=== PATIENT | female | born 1990 | race Caucasian/White ===

== ENCOUNTER 2021-06-04 10:05 | Emergency (ER) | payer OTHER, MEDICAID ==
[~2021-06-04] VITALS: Ht 180.3 cm; Wt 88.5 kg
[2021-06-04] MEDS ORDERED: IBUPROFEN 800800 M1 PO (10:17)
[2021-06-04] MEDS ORDERED: NORCO7.5 PO (10:17)
[2021-06-04] MEDS ORDERED: PREDNISONE 10 M10 MG PO (10:17)
[2021-06-04] MEDS ORDERED: PRELONE15 MG/5 ML PO (10:19)
[2021-06-04] MEDS ORDERED: [UNRECOGNIZED DRUG - CODE] PO (10:21)
[2021-06-04 10:50] LABS: HEMOGLOBIN 11.5 gm/dL (12.0-15.0); MCH 32.5 pg (26.0-34.0); MCHC 33.8 g/dL (28.0-37.0); MCV 96.1 fL (80.0-100.0); MPV 8.1 fl. (7.2-11.1); NUCLEATED RBCS 0 /100WBC; PLATELET COUNT* 320 thou/uL (150-400); RBC 3.54 mil/uL (4.20-5.00); RDW-CV 12.7 % (10.5-14.5); WBC 20.7 thou/uL (4.0-11.0)
[2021-06-04 10:58] LABS: CALCIUM 8.9 mg/dL (8.5-10.1); POTASSIUM 3.5 mmol/L (3.5-5.1)
[2021-06-04 11:02] LABS: ALBUMIN 3.7 g/dL (3.4-5.0); TOTAL BILIRUBIN 0.2 mg/dL (<0.1-1.0)
[2021-06-04 11:36] LABS: ABSOLUTE LYMPHOCYTES 0.2 thou/uL (0.8-5.3); ABSOLUTE MONOCYTES 0.4 thou/uL (0.0-1.2); ABSOLUTE NEUTROPHILS 20.1 thou/uL (1.6-8.1); PLATELET ESTIMATE ADEQUATE
[2021-06-04 17:14] VITALS: BP 111/73
== END 2021-06-04 17:16 | disposition still patient (30) ==
LOC: M.ERS 10:05
PROVIDERS: Physician Assistant
DX: K12.2 Cellulitis and abscess of mouth (principal); Z20.822 Contact with and (suspected) exposure to COVID-19; Z79.899 Other long term (current) drug therapy

== ENCOUNTER 2021-07-21 18:30 | Emergency (ER) | payer OTHER, MEDICAID ==
[~2021-07-21] VITALS: Ht 180.3 cm; Wt 88.5 kg
[~2021-07-21 18:30] MED LIST: IBUPROFEN 800800 M1 PO; NORCO7.5 PO; PREDNISONE 10 M10 MG PO; PRELONE15 MG/5 ML PO; [UNRECOGNIZED DRUG - CODE] PO
[2021-07-21] MEDS ORDERED: CELEXA (19:02)
[2021-07-21 19:38] LABS: URINE BILIRUBIN NEGATIVE (Negative); URINE BLOOD NEGATIVE (Negative); URINE CLARITY CLEAR; URINE COLOR YELLOW; URINE GLUCOSE-RANDOM NEGATIVE (Negative); URINE KETONES TRACE (Negative); URINE LEUKOCYTES-REFLEX NEGATIVE (Negative); URINE NITRITE-REFLEX NEGATIVE (Negative); URINE PROTEIN NEGATIVE (Negative); URINE SPECIFIC GRAVITY 1.025 (1.005-1.030); URINE UROBILINOGEN 0.2 E.U./dl (0.2-1.0)
[2021-07-21 20:13] LABS: ABSOLUTE EOSINOPHILS 0.4 thou/uL (0.0-0.7); ABSOLUTE LYMPHOCYTES 1.9 thou/uL (0.8-5.3); ABSOLUTE MONOCYTES 0.8 thou/uL (0.0-1.2); ABSOLUTE NEUTROPHILS 4.5 thou/uL (1.6-8.1); BASOPHILS 0.6 %; HEMATOCRIT 34.6 % (37.0-47.0); HEMOGLOBIN 11.4 gm/dL (12.0-15.0); LYMPHOCYTES 25.3 %; MCHC 33.1 g/dL (28.0-37.0); MCV 96.7 fL (80.0-100.0); MONOCYTES 10.1 %; MPV 8.9 fl. (7.2-11.1); NUCLEATED RBCS 0 /100WBC; PLATELET COUNT* 186 thou/uL (150-400); RBC 3.58 mil/uL (4.20-5.00); RDW-CV 15.4 % (10.5-14.5); WBC 7.6 thou/uL (4.0-11.0)
[2021-07-21 20:20] LABS: CALCIUM 8.7 mg/dL (8.5-10.1); MAGNESIUM 1.8 mg/dL (1.8-2.4); POTASSIUM 3.7 mmol/L (3.5-5.1)
[2021-07-21 20:21] LABS: CALCIUM 8.9 mg/dL (8.5-10.1); CREATININE 1.1 mg/dL (0.6-1.3); POTASSIUM 3.8 mmol/L (3.5-5.1)
[2021-07-21 20:26] LABS: ALBUMIN 3.8 g/dL (3.4-5.0); TOTAL BILIRUBIN 0.3 mg/dL (<0.1-1.0); TOTAL PROTEIN 6.7 g/dL (6.4-8.2)
[2021-07-21 21:49] VITALS: BP 122/57
== END 2021-07-21 21:50 | disposition home or self-care (01) ==
LOC: M.ERS 18:30
PROVIDERS: Emergency Medicine
DX: R10.32 Left lower quadrant pain (principal); R10.12 Left upper quadrant pain; R11.2 Nausea with vomiting, unspecified; Z79.899 Other long term (current) drug therapy